=== PATIENT | female | born 1980 | race American Indian/Alaskan Native ===

== ENCOUNTER 2018-10-05 19:40 | Emergency (ER) | payer MEDICAID ==
[2018-10-05 19:47] VITALS: BP 143/89; PULSE 82; RESP 16; TEMP 98; O2SAT 98; BMI 27.9
--- NOTE | 2018-10-05 20:18 | ED PDOC ---
Arrival/HPI <RonnieBroderick - Last Filed: 10/05/18 20:32> - General Historian: Patient - History of Present Illness Narrative History of Present Illness (Text): 38 y/o female with PMH of anemia presents to the ED c/o right-sided dental pain and facial swelling. States she has had dental pain for over a month, but the facial swelling began yesterday. Pain is located on the upper jaw right side. Pt saw her dentist initially for the pain, was told she needed a tooth extracted, but never followed up. States she has an appointment Sunday. No recent antibiotic use. No allergies. Denies fevers, chills, headache, dizziness, throat swelling, N/V, abdominal pain, weakness, numbness, paresthesias, or any other associated complaints. <Ivonne Figueroa - Last Filed: 10/06/18 00:20> - General Chief Complaint: Dental Pain Time Seen by Provider: 10/05/18 19:50 Past Medical History - Provider Review Nursing Documentation Reviewed: Yes - Past History Past History: No Previous - Infectious Disease Hx of Infectious Diseases: None - Tetanus Immunization Tetanus Immunization: Unknown - Past Medical History Past Medical History: No Previous - Cardiac Hx Pacemaker: No - Pulmonary Hx Respiratory Disorders: No - Neurological Hx Neurological Disorder: No - HEENT Hx HEENT Disorder: No - Renal Hx Renal Disorder: No - Endocrine/Metabolic Hx Endocrine Disorders: Yes Other/Comment: GESTATIONAL DM - Hematological/Oncological Hx Anemia: Yes - Integumentary Hx Dermatological Disorder: No - Musculoskeletal/Rheumatological Hx Musculoskeletal Disorders: No Hx Falls: No - Gastrointestinal Hx Gastrointestinal Disorders: Yes Hx Gall Bladder Disease: Yes (CHOLECYSTECTOMY) - Genitourinary/Gynecological Hx Genitourinary Disorders: No - Psychiatric Hx Emotional Abuse: No Hx Physical Abuse: No Hx Substance Use: No - Past Surgical History Past Surgical History: No Previous - Surgical History Hx Cholecystectomy: Yes - Anesthesia Hx Anesthesia: Yes Hx Anesthesia Reactions: No Hx Malignant Hyperthermia: No - Suicidal Assessment Feels Threatened In Home Enviroment: No <Ivonne Figueroa - Last Filed: 10/06/18 00:20> Family/Social History - Physician Review Nursing Documentation Reviewed: Yes Family/Social History: No Known Family HX Smoking Status: Never Smoked Hx Alcohol Use: No Hx Substance Use: No Hx Substance Use Treatment: No <Kiana Figueroasa - Last Filed: 10/06/18 00:20> Allergies/Home Meds <RonnieBroderick - Last Filed: 10/05/18 20:32> <HenryIvonne - Last Filed: 10/06/18 00:20> Allergies/Adverse Reactions: Allergies No Known Allergies Allergy (Verified 04/12/12 16:22) Review of Systems - Physician Review All systems were reviewed & negative as marked: Yes - Review of Systems Constitutional: Normal. absent: Fevers Eyes: Normal. absent: Vision Changes ENT: Other (Right, upper dental pain; right sided facial swelling). absent: Hearing Changes, Sore Throat, Sinus Congestion Respiratory: Normal. absent: SOB, Cough Cardiovascular: Normal. absent: Chest Pain, Palpitations Gastrointestinal: Normal. absent: Abdominal Pain, Nausea, Vomiting Genitourinary Female: Normal Musculoskeletal: Normal Skin: Other (right sided facial swelling). absent: Rash, Cellulitis Neurological: Normal. absent: Headache, Dizziness Endocrine: Normal Hemo/Lymphatic: Normal Psychiatric: Normal <LisanoreenIvonne - Last Filed: 10/06/18 00:20> Physical Exam Vital Signs Temp Pulse Resp BP Pulse Ox 10/05/18 19:46 98.0 F 82 16 143/89 98 <RonnieBroderick - Last Filed: 10/05/18 20:32> Vital Signs Reviewed: Yes Vital Signs Temp Pulse Resp BP Pulse Ox 10/05/18 19:46 98.0 F 82 16 143/89 98 Temperature: Afebrile Blood Pressure: Normal Pulse: Regular Respiratory Rate: Normal Appearance: Positive for: Well-Appearing, Non-Toxic, Comfortable Pain Distress: None Mental Status: Positive for: Alert and Oriented X 3 - Systems Exam Head: Present: Atraumatic, Normocephalic, Swelling (mild over right maxilla). No: Other (redness, warmth) Pupils: Present: PERRL Extroacular Muscles: Present: EOMI Conjunctiva: Present: Normal Ears: Present: Normal, NORMAL TM Mouth: Present: Moist Mucous Membranes, Other (dental caries right side; upper right molars tender to palpation; mild swelling to gum above right molars, no abscess ) Pharnyx: Present: Normal. No: ERYTHEMA, EXUDATE, TONSILS ENLARGED, Peritonsilar Swelling, Uvular Deviation Nose (External): Present: Atraumatic Nose (Internal): Present: Normal Inspection Neck: Present: Normal Range of Motion. No: Meningeal Signs, MIDLINE TENDERNESS, Paraspinal Tenderness, Lymphadenopathy Respiratory/Chest: Present: Clear to Auscultation, Good Air Exchange. No: Respiratory Distress, Accessory Muscle Use Cardiovascular: Present: Regular Rate and Rhythm, Normal S1, S2, Peripheal Pulses Present. No: Murmurs Upper Extremity: Present: Normal Inspection, Normal ROM, NORMAL PULSES, Neurovascularly Intact, Capillary Refill < 2s. No: Cyanosis, Edema Lower Extremity: Present: Normal Inspection, Normal ROM Neurological: Present: GCS=15, CN II-XII Intact, Speech Normal, Motor Func Grossly Intact, Normal Sensory Function, Gait Normal, Memory Normal Skin: Present: Warm, Dry, Normal Color. No: Rashes Lymphatic: No: Cervical Adenopathy Psychiatric: Present: Alert, Oriented x 3, Normal Insight, Normal Concentration, Normal Affect, Normal Mood <Ivonne Figueroa - Last Filed: 10/06/18 00:20> Medical Decision Making - Medication Orders Current Medication Orders: Discontinued Medications Clindamycin HCl (Cleocin) 450 mg PO STAT STA; Protocol Stop: 10/05/18 20:12 Last Admin: 10/05/18 20:22 Dose: 450 mg Ibuprofen (Motrin Tab) 600 mg PO STAT STA Stop: 10/05/18 20:12 Last Admin: 10/05/18 20:25 Dose: 600 mg <Broderick Trujillo - Last Filed: 10/05/18 20:32> ED Course and Treatment: Initial Plan: * Clindamycin * Ibuprofen * Reassess and Disposition Patient evaluated and examined at bedside by ED attending Dr. Trujillo, who recommends Clindamycin and outpatient dental followup. No indication for I&D. Plan of care discussed with patient. Strict instructions given regarding prescription use, importance of followup, and signs/symptoms to return to the ED including worsening pain, numbness, parethesias, weakness, dizziness, fever, chills, throat swelling, or any other new/worsening symptoms. Patient verbalizes understanding of instructions. Patient given the opportunity to ask questions. Patient A&Ox3, ambulating with steady gait, with vital signs stable for discharge. Patient agrees with plan to discharge home with instructions to followup with dentist as scheduled. <Ivonne Figueroa - Last Filed: 10/06/18 00:20> - PA / DRIVE THRU ORDER TAKER / Resident Statement JOAQUIN has reviewed & agrees with the documentation as recorded. JOAQUIN has examined the patient and agrees with the treatment plan. <Broderick Trujillo - Last Filed: 10/05/18 20:32> Disposition/Present on Arrival <Broderick Trujillo - Last Filed: 10/05/18 20:32> - Present on Arrival Any Indicators Present on Arrival: No History of DVT/PE: No History of Uncontrolled Diabetes: No Urinary Catheter: No History of Decub. Ulcer: No History Surgical Site Infection Following: None - Disposition Have Diagnosis and Disposition been Completed?: Yes Disposition Time: 20:10 <Ivonne Figueroa - Last Filed: 10/06/18 00:20> - Disposition Diagnosis: Dental infection Disposition: HOME/ ROUTINE Condition: STABLE Discharge Instructions (ExitCare): Tooth Abscess (DC), Dental Pain (DC) Additional Instructions: Take antibiotic 450mg every 8 hours for 7 days Take ibuprofen every 8 hours with food as needed for pain Followup with dentist as scheduled on Sunday Return to ER for any new/worsening symptoms Prescriptions: Clindamycin [Cleocin] 450 mg PO Q8H 7 Days #63 cap Ibuprofen [Motrin Tab] 600 mg PO Q8H PRN #30 tab PRN Reason: Pain, Moderate (4-7) Referrals: [facility] [place] [Outside] - Follow up with primary Gina Nunes MD [Medical Doctor] - Follow up with primary Forms: [employer] (Ecuadorean)
== END 2018-10-05 21:16 | disposition home or self-care (01) ==
LOC: ED 19:40
DX: K04.7 Periapical abscess without sinus (principal)